=== PATIENT | female | born 1965 | race Caucasian/White ===

== ENCOUNTER 2016-08-01 05:27 | Inpatient (IN) | payer BC ==
[2016-07-30 16:39] LABS: BASOPHILS 0.1 % (0.0-2.0); EOSINOPHILS 1.8 % (0-7); HEMATOCRIT 34.7 % (36.0-48.0); HEMOGLOBIN 10.8 g/dL (12-16); IMMATURE GRANULOCYTES 0.1 % (0-5); LYMPHOCYTES 24.5 % (15-50); MCH 28.8 pg (26.0-34.0); MCHC 31.1 g/dL (31.0-37.0); MCV 92.5 fL (80.0-100.0); MEAN PLATELET VOLUME 9.4 fL (7.4-10.4); MONOCYTES 9.2 % (2-11); NEUTROPHILS 64.3 % (40-80); PLATELET COUNT 371 10x3/uL (130-400); RBC 3.75 10x6/uL (4.00-5.40); RDW 13.1 % (11.5-14.5); WBC 7.6 10x3/uL (4.8-10.8)
[~2016-08-01] VITALS: Ht 165.1 cm; Wt 92.7 kg
[2016-08-01] VITALS (14 sets, daily range): BP systolic 118–157; BP diastolic 68–99; Ht 165.1 cm; Wt 92.7 kg
[~2016-08-01 05:27] MED LIST: CYMBALTA60 MG PO; HYDROCODONE-APA1 TAB PO; NAPROSYN500 MG PO; OMEPRAZOLE20 M1 PO
[2016-08-01] MEDS ORDERED: ATIVAN0.5 MG PO (05:59)
[2016-08-01 06:00] LABS: HCG URINE NEGATIVE (NEGATIVE)
--- NOTE | 2016-08-01 10:40 | NUR ---
PT WAS RECEIVED FROM RECOVERY ROOM STATUS POST TOTAL ABDOMINAL HYST. SHE IS DROWSY BUT EASILY AWAKENS. SHE WAS TRANSFERRED FROM STRETCHER TO BED. SHE REQUEST ICE CHIPS. GIVEN. GEN- DROWSY BUT AWAKENS EASILY. LUNGS- CLEAR. HEART- RRR. ABD- SOFT WITH TENDERNESS. BIKINI LINE INCISION WITH PRIMAPORE DRESSING. EXT- SCD'S INTACT AND INITIATED. IV R HAND INTACT WITH LR INFUSING AT 125 CC/HR. SALINE LOCK NOTED LEFT HAND WHICH IS PATENT. CHUNG CATH INTACT WITH LIGHT GREEN URINE. SHE ALREADY HAS 700 CC OUTPUT POST OP. BED IS LOW, CALL LIGHT IN REACH AND SIDE RAILS ARE UP X 2.
--- NOTE | 2016-08-01 11:50 | NUR ---
PT'S IS AT BEDSIDE. SHE STILL STATES PAIN IS A 10.
--- NOTE | 2016-08-01 12:19 | NUR ---
PT IS RESTING IN BED. BED IS LOW, SIDE RAILS UP X 2. CALL LIGHT IN REACH. PTS PAIN IS ABOUT AN 8 NOW. ICE PACK IS ON INCISION. SCD'S INTACT. IV PATENT R HAND WITH LR INFUSING AT 125 CC/HR. SALINE LOCK PATENT LEFT HAND. IS AT BEDSIDE.
--- NOTE | 2016-08-01 13:10 | NUR ---
PT IS RESTING WITH EYES CLOSED. AT BEDSIDE.
[2016-08-01 13:31] LABS: BASOPHILS 0.1 % (0.0-2.0); EOSINOPHILS 0 % (0-7); HEMOGLOBIN 10.8 g/dL (12-16); IMMATURE GRANULOCYTES 0.3 % (0-5); MCH 29.1 pg (26.0-34.0); MCHC 31.8 g/dL (31.0-37.0); MCV 91.6 fL (80.0-100.0); MEAN PLATELET VOLUME 10.3 fL (7.4-10.4); MONOCYTES 2.8 % (2-11); NEUTROPHILS 94.8 % (40-80); PLATELET COUNT 373 10x3/uL (130-400); RBC 3.71 10x6/uL (4.00-5.40); RDW 13.3 % (11.5-14.5)
[2016-08-01 13:49] LABS: CALC OSMOLALITY 273 mosm/kg (275-300); CALCIUM 8.8 mg/dL (8.5-10.1); CARBON DIOXIDE 27.5 mmol/L (21.0-32.0); CHLORIDE - SERUM 100 mmol/L (98-107); CREATININE - SERUM 0.5 mg/dL (0.6-1.3); GLUCOSE 128 mg/dL (74-106); POTASSIUM - SERUM 3.9 mmol/L (3.5-5.1); SODIUM 136 mmol/L (136-145); UREA NITROGEN 13 mg/dL (7-18); eGFR NON AFRICAN AMERICAN > 90 mL/min (90-120)
[2016-08-01 13:55] LABS: WBC 19.5 10x3/uL (4.8-10.8)
--- NOTE | 2016-08-01 14:00 | NUR ---
PT CONTINUES TO COMPLAIN OF PAIN. DILAUDID 0.4 MG BOLUS GIVEN.
--- NOTE | 2016-08-01 14:00 | NUR ---
PTS WBC WAS 19.[address] GARCIA. HE STATES THIS IS NOT UNUSAL. WE WILL SEE WHAT IT IS TOMM AM.
--- NOTE | 2016-08-01 15:48 | NUR ---
PT IS SITTING UP IN BED. SHE FEELS MUCH BETTER. HER PAIN IS BETTER SHE STATES. INCISION WITH PRIMAPORE DRESSING. CLEAN , DRY AND INTACT. NO VAGINAL BLEEDING NOTED. IV SALINE LOCK CAME OUT. CLEANED HER HAND AND APPLIED BANDAID. TIP WAS INTACT. IV PATENT R HAND. CHUNG INTACT. 100CC LIGHT GREEN URINE. 450 TOTAL SINCE I'VE RECEIVED HER. SCD'S INTACT. FRESH ICE WATER GIVEN. BED IS LOW, SIDE RAILS UP X 2 AND CALL LIGHT IN REACH. HER IS AT BEDSIDE.
--- NOTE | 2016-08-01 16:29 | NUR ---
PT IS SLEEPING. LEFT TO GO HOME FOR A WHILE. BED IS LOW. CALLL LIGHT IN REACH AND SIDE RAILS UP X 2.
--- NOTE | 2016-08-01 17:21 | NUR ---
PT IS RESTING WELL. SHE OFFERS NO COMPLAINTS. CHUNG WITH 650 CC LIGHT GREEN URINE. IV INTACT R HAND WIT LR AT 125 VV/HR. DILAUDID RECEIVING SPECIALIST INTACT. CHUNG INTACT. SCD'S ON. NO VAGINAL BLEEDING NOTED. BED IS LOW , CALL LIGHT IN REACH AND SIDE RAILS UP X 2.
--- NOTE | 2016-08-01 17:55 | NUR ---
PT IS SITTING UP IN BED EATING DINNER. SHE OFFERS NO COMPLAINTS. IV INTACT R HAND WITH LR INFUSING AT 125 CC HR. DILAUDID [employer] 0.2 MG Q 10 MIN WITH A 4 MG LOCKOUT. SCD'S INTACT. CHUNG INTACT WITH LIGHT GREEN URINE NOTED. BED IS LOW, CALL LIGHT IS IN REACH AND SIDE RAILS UP X 2.
--- NOTE | 2016-08-01 20:20 | NUR ---
REC'D PT IN BED. PT C/O PAIN AT 1010 TO ABDOMEN. IV OF LR INFUSING AT 125CC/HR WITH VOCAL PERFORMER DILAUDID AVAILABLE FOR PAIN CONTROL. PT STATES IT IS NOT HELPING. INFORMED SHE HAS TORADOL ORDERED AND EXPLAINED WHAT IT IS FOR. PT AGREED TO TRY IT AND SEE IF IT WILL HELP. LUNGS CLEAR BILATERALLY. ABDOMEN SOFT NONDISTENDED. BOWEL SOUNDS PRESENT X4. LARGE DRESSING TO LOWER ABDOMEN C/D/I. CHUNG CATH IN PLACE DRAINING METHYLENE BLUE COLORED URINE. SCDS IN PLACE AND PUMP FUNCTIONING. ASSISTED PT TO TURN, COUGH AND DEEP BREATH. PILLOW TO BACK, AND BETWEEN KNEES. FRESH ICE CAP TO ABDOMEN AND ICE WATER PROVIDED PER PT REQUEST. KANDY ROBERTS
--- NOTE | 2016-08-01 20:28 | NUR ---
TORADOL 30MG SIVP ADMINISTERED AT THIS TIME. SEE E-MAR FOR DOCUMENTATION. KANDY ROBERTS
--- NOTE | 2016-08-01 21:34 | NUR ---
PAIN REASSESSMENT NOW 09/16. PT REPOSITIONED TO LEFT SIDE. PILLOWS TO BACK AND BETWEEN KNEES FOR COMFORT. KANDY ROBERTS
--- NOTE | 2016-08-01 22:41 | NUR ---
PT PHYSICIAN CHIEF OF PATHOLOGY LIGHT. REQUESTS ICE WATER AT THIS TIME. DENIES OTHER NEEDS. BED LOW. PHONE AND CALL LIGHT IN REACH. SRX2.
--- NOTE | 2016-08-01 22:45 | NUR ---
VS TAKEN AND WNL. PT RATES PAIN 3/10. FRESH ICE CAP FOR ABDOMEN AND ICE WATER IN CUP. PT TURNS SELF IN BED. SITTING UP HIGH FOWLERS. JELLO PROVIDED PER PT REQUEST. KANDY ROBERTS
--- NOTE | 2016-08-02 00:15 | NUR ---
PT RESTING WITH EYES CLOSED. RESP EVEN AND UNLABORED. KANDY ROBERTS
--- NOTE | 2016-08-02 01:45 | NUR ---
ROUNDS MADE, PT RESTING WITH EYES CLOSED. AWAKENS EASILY WITH VERBAL STIMULI. PT PUSHED HER LIME MIXER TENDER BUTTON. INFORMED TORADOL IS DUE AT 0230. ACKNOWLEDGED UNDERSTANDING. NO NEEDS AT THIS TIME. KANDY ROBERTS
--- NOTE | 2016-08-02 02:25 | NUR ---
TORADOL 30MG ADMINISTERED SIVP. PT C/O PAIN 09/16 TO ABDOMEN. GOWN CHANGED. IV SITE CLEAR. FRESH ICE WATER, JELLO AND PEANUT BUTTER AND CRACKERS PROVIDED PER PT REQUEST. KANDY ROBERTS
[2016-08-02 03:47] VITALS: BP 142/71
--- NOTE | 2016-08-02 03:47 | NUR ---
PT RESTING QUIETLY AT THIS TIME. AROUSED EASILY. VSS. EMPTIED 1800 CC FROM CHUNG. REQUESTS ICE WATER. RATES PAIN /. DENIES OTHER NEEDS AT THIS TIME. BED LOW. PHONE AND CALL LIGHT IN REACH. SRX2.
--- NOTE | 2016-08-02 05:45 | NUR ---
PT AWAKE AND ALERT ON PHONE. DENIES NEEDS. KANDY ROBERTS
[2016-08-02 07:00] VITALS: BP 140/75
[2016-08-02 07:00] LABS: BASOPHILS 0 % (0.0-2.0); EOSINOPHILS 0.2 % (0-7); HEMATOCRIT 30.3 % (36.0-48.0); HEMOGLOBIN 9.5 g/dL (12-16); IMMATURE GRANULOCYTES 0.1 % (0-5); LYMPHOCYTES 16.8 % (15-50); MCH 28.5 pg (26.0-34.0); MCHC 31.4 g/dL (31.0-37.0); MEAN PLATELET VOLUME 9.3 fL (7.4-10.4); MONOCYTES 7.4 % (2-11); NEUTROPHILS 75.5 % (40-80); RBC 3.33 10x6/uL (4.00-5.40)
--- NOTE | 2016-08-02 07:00 | NUR ---
AM ASSESSMENT DONE AT THIS TIME. NO SIGNS OF DISTRESS NOTED.
[2016-08-02 07:10] LABS: PLATELET COUNT 295 10x3/uL (130-400); WBC 9.5 10x3/uL (4.8-10.8)
[2016-08-02 07:14] LABS: CALCIUM 8.2 mg/dL (8.5-10.1); CARBON DIOXIDE 28.8 mmol/L (21.0-32.0); CHLORIDE - SERUM 98 mmol/L (98-107); CREATININE - SERUM 0.6 mg/dL (0.6-1.3); GLUCOSE 92 mg/dL (74-106); SODIUM 133 mmol/L (136-145); eGFR NON AFRICAN AMERICAN > 90 mL/min (90-120)
[2016-08-02 07:16] LABS: CALC OSMOLALITY 262 mosm/kg (275-300); POTASSIUM - SERUM 3.3 mmol/L (3.5-5.1); UREA NITROGEN 4 mg/dL (7-18)
--- NOTE | 2016-08-02 08:25 | NUR ---
PATIENT STATES PAIN LEVEL 9 OUT OF 10. PRN MEDICATION GIVEN AT THIS TIME.
--- NOTE | 2016-08-02 08:55 | NUR ---
PATIENT STATES PAIN RELIEF 6 OUT OF 10
--- NOTE | 2016-08-02 10:00 | NUR ---
PATIENT RESTING QUIETLY. NO SIGNS OF DISTRESS NOTED.
--- NOTE | 2016-08-02 11:30 | NUR ---
PATIENT REQUESTING GURVINDER. GURVINDER GIVEN TO PATIENT.
--- NOTE | 2016-08-02 12:09 | NUR ---
Pt awake and alert and setting in bed and eating salad at this time. SL to right hand, Schafer draining clear ela urine to bedside gravity without difficulty. SCD on at this time and working.
--- NOTE | 2016-08-02 12:33 | NUR ---
Schafer D/cd after bulb deflated. Pt tolerated well "that was not bad". Obtained 675 ml of clear ela urine. Instructed pt to call when needing to get up and void. Pt verblized her understanding.
--- NOTE | 2016-08-02 12:46 | NUR ---
PATIENT STATES PAIN LEVEL 8 OUT OF 10. PRN MEDICATION GIVEN AT THIS TIME.
--- NOTE | 2016-08-02 13:15 | NUR ---
PATIENT STATES PAIN RELIEF 3 OUT OF 10.
--- NOTE | 2016-08-02 13:54 | NUR ---
Pt up with assistance and ambulated to rest room - tolerated well. Voided 525 ml yellow urine. Note scant amount of vaginal bleeding. Pad changed on bed. Pannies and citlaly pad on with citlaly pad on incision as well. Assisted patient back to bed without difficulty. Denies needs at this time.
--- NOTE | 2016-08-02 15:00 | NUR ---
PATIENT RESTING QUIETLY AT THIS TIME.
--- NOTE | 2016-08-02 16:00 | NUR ---
PATIENT AMBULATED TO BATHROOM WITH ASSIST. PATIENT VOIDED 600CC'S OF CLEAR URINE WITH SMALL AMOUNT OF BLOOD NOTED. PATIENT TOLERATED AMBULATING WELL. PATIENT BACK TO BED. SCD'S APPLIED.
--- NOTE | 2016-08-02 17:54 | NUR ---
PT SITTING IN BED VISITING WITH BROTHER. LAUGHING AND SMILING. STATES PAIN A LEVEL 6 ON NUMERIC SCALE. ADMINISTERED PAIN MEDICATION REQUESTED AND ORDERED. WILL REASSESS.
[2016-08-02 19:35] VITALS: BP 131/91
--- NOTE | 2016-08-02 19:35 | NUR ---
PT RECEIVED SITTING UP IN BED COLORING IN A COLORING BOOK. VSS. S/L NOTED TO RIGHT HAND. PT RATES PAIN 4/10. HEART RRR. LUNG SOUNDS CLEAR BILATERALLY. BOWEL SOUNDS ACTIVE X4 QUADRENTS. SCDS NOTED TO BLE. ABDOMEN SOFT WITH TENDERNESS. LOW TRANSVERSE INCISION NOTED TO ABDOMEN WITH KYARA. NO REDNESS, SWELLING, OR PURULENT DRAINAGE NOTED. LIGHT LOCHIA RUBRA NOTED TO NICHOLAS PAD. PT REQUESTS ICE WATER AT THIS TIME. DENIES OTHER NEEDS. BED LOW. PHONE AND CALL LIGHT IN REACH. SRX2.
[2016-08-02 19:45] LABS: CALCIUM 8.6 mg/dL (8.5-10.1); CARBON DIOXIDE 31.2 mmol/L (21.0-32.0); CHLORIDE - SERUM 104 mmol/L (98-107); CREATININE - SERUM 0.7 mg/dL (0.6-1.3); GLUCOSE 111 mg/dL (74-106); SODIUM 143 mmol/L (136-145); eGFR NON AFRICAN AMERICAN > 90 mL/min (90-120)
[2016-08-02 19:46] LABS: CALC OSMOLALITY 283 mosm/kg (275-300); POTASSIUM - SERUM 3.9 mmol/L (3.5-5.1); UREA NITROGEN 8 mg/dL (7-18)
--- NOTE | 2016-08-02 20:43 | NUR ---
PT SITTING UP IN BED. REQUESTS ICE WATER AND FOR AIR TO BE TURNED DOWN AT THIS TIME. DENIES OTHER NEEDS. BED LOW. PHONE AND CALL LIGHT IN REACH. SRX2.
--- NOTE | 2016-08-02 21:17 | NUR ---
PT REQUESTS LIGHT BE TURNED OFF AT THIS TIME. DENIES OTHER NEEDS. BED LOW. PHONE AND CALL LIGHT IN REACH. SRX2.
--- NOTE | 2016-08-02 22:10 | NUR ---
PT RESTING QUIETLY AT THIS TIME ON RIGHT SIDE. AROUSED EASILY. DENIES NEEDS AT THIS TIME. BED LOW. PHONE AND CALL LIGHT IN REACH. SRX2.
--- NOTE | 2016-08-02 22:17 | NUR ---
PT REQUESTS MEDICATION FOR PAIN 08/16 AT THIS TIME. ADMINISTERED NORCO PO PER ORDERS. DENIES OTHER NEEDS.
[2016-08-03] VITALS: BP 145/88
--- NOTE | 2016-08-03 | NUR ---
PT RESTING QUIETLY AT THIS TIME. AROUSED EASILY. BP-145/88 P-78. O2-96% ON ROOM AIR. PT RATES PAIN 2/10. SCANT BLEEDING NOTED TO NICHOLAS PAD. PT DENIES NEEDS AT THIS TIME. BED LOW. PHONE AND CALL LIGHT IN REACH. SRX2.
--- NOTE | 2016-08-03 02:05 | NUR ---
PT RESTING QUIETLY AT THIS TIME WITH EYES CLOSED. RESPIRATIONS EVEN, NON-LABORED. NO ACUTE DISTRESS NOTED AT THIS TIME. BED LOW. PHONE AND CALL LIGHT IN REACH. SRX2.
[2016-08-03 04:25] VITALS: BP 132/85
--- NOTE | 2016-08-03 04:25 | NUR ---
PT LYING IN BED ON LEFT SIDE RESTING QUIETLY AT THIS TIME. RATES PAIN 2/10. VSS. SCANT AMOUNT OF BLOOD NOTED TO NICHOLAS PAD. PT DENIES NEEDS AT THIS TIME. BED LOW. PHONE AND CALL LIGHT IN REACH. SRX2.
--- NOTE | 2016-08-03 05:58 | NUR ---
PT CHARTING CLERK LIGHT. REQUESTS MEDICATION FOR PAIN 01/16 AT THIS TIME. DENIES OTHER NEEDS. BED LOW. PHONE AND CALL LIGHT IN REACH. SRX2.
[2016-08-03 06:59] LABS: BASOPHILS 0.4 % (0.0-2.0); HEMATOCRIT 33.2 % (36.0-48.0); IMMATURE GRANULOCYTES 0.2 % (0-5); LYMPHOCYTES 26.2 % (15-50); MCH 28.4 pg (26.0-34.0); MCHC 30.1 g/dL (31.0-37.0); MEAN PLATELET VOLUME 9.9 fL (7.4-10.4); MONOCYTES 8.6 % (2-11); NEUTROPHILS 62.6 % (40-80); PLATELET COUNT 330 10x3/uL (130-400); RBC 3.52 10x6/uL (4.00-5.40); RDW 13.4 % (11.5-14.5); WBC 8.1 10x3/uL (4.8-10.8)
[2016-08-03 07:01] LABS: MCV 94.3 fL (80.0-100.0)
[2016-08-03 07:06] LABS: CALC OSMOLALITY 280 mosm/kg (275-300); CALCIUM 8.6 mg/dL (8.5-10.1); CARBON DIOXIDE 31.3 mmol/L (21.0-32.0); CHLORIDE - SERUM 104 mmol/L (98-107); CREATININE - SERUM 0.6 mg/dL (0.6-1.3); GLUCOSE 99 mg/dL (74-106); POTASSIUM - SERUM 3.8 mmol/L (3.5-5.1); SODIUM 142 mmol/L (136-145); UREA NITROGEN 7 mg/dL (7-18); eGFR NON AFRICAN AMERICAN > 90 mL/min (90-120)
[2016-08-03 07:10] VITALS: BP 140/76
--- NOTE | 2016-08-03 07:20 | NUR ---
PT AWAKE, ALERT, ORIENTED, SITTING UP IN BED COLORING. LOW TRANSVERSE ABD INC C/D/I WITH KYARA, COVERED WITH NICHOLAS PAD FOR COMFORT. SCANT BLEEDING. LARGE GLASS ICE WATER PROVIDED. ANTICIPATES D/C TODAY.
--- NOTE | 2016-08-03 08:30 | NUR ---
AM MEDS GIVEN. VISITOR AT BEDSIDE.
--- NOTE | 2016-08-03 09:18 | NUR ---
RESTING IN BED ON RIGHT SIDE. VISITOR AT BEDSIDE.
--- NOTE | 2016-08-03 10:36 | NUR ---
RX GIVEN FOR INCISIONAL PAIN. SEE EMAR.
[2016-08-03] MEDS ORDERED: IBUPROFEN600 MG PO (11:06)
--- NOTE | 2016-08-03 11:26 | NUR ---
DR. BOLANOS HERE FOR ROUNDS.
--- NOTE | 2016-08-03 12:15 | NUR ---
D/C INSTRUCTIONS EXPLAINED TO PT. VOICED UNDERSTANDING. COPIES OF ALL GIVEN, WELL WRITTEN RX'S FOR NORCO [address] BOLANOS. SL D/C'D CATH INTACT FROM RIGHT HAND. ESTRADIOL PATCH EXPLAINED AND PLACED ON PT.
--- NOTE | 2016-08-03 12:30 | NUR ---
D/C'D HOME VIA W/C TO PRIVATE CAR.
--- NOTE | 2016-08-06 11:44 | OP ---
PATIENT NAME: TALHA GUNN MEDICAL RECORD: [id number] :69 LOCATION:[id number] ADMISSION DATE:08/01/16 SURGEON: JOHN MORALES MD DATE OF OPERATION: 08/01/2016 PREOPERATIVE DIAGNOSES: 1. Menorrhagia. 2. Pelvic pain. 3. Uterine fibroids. POSTOPERATIVE DIAGNOSES: 1. Menorrhagia. 2. Pelvic pain. 3. Uterine fibroids. 4. Likely adenomyosis. PROCEDURES: Total abdominal hysterectomy, bilateral salpingo-oophorectomy. SURGEON: John Morales MD. ANESTHESIA: General endotracheal. INTRAVENOUS FLUIDS: Per anesthesia record. ESTIMATED BLOOD LOSS: 200 cc. FINDINGS: 1. Enlarged fibroid uterus with soft in texture consistent with adenomyosis. 2. Grossly normal tubes and ovaries bilaterally. SPECIMENS: Uterus with cervix, bilateral fallopian tubes and ovaries. COMPLICATIONS: None apparent. PROCEDURE IN DETAIL: The patient was taken to the operating room where general anesthesia was achieved without difficulty. The patient was then prepped and draped in normal sterile fashion in the dorsal supine position. SCDs were on and functioning normally. A Schafer catheter had been placed and was found to be draining normally. At this point, a Pfannenstiel skin incision was made, extended downwards to the underlying subcutaneous fat to level of the fascia, which was then excised in the midline and dissected bilaterally using the Manuel scissors. Superior and inferior aspects of the fascial incision were then grasped with Josy clamps times 2, tented upward, and sharply dissected from the underlying rectus muscle. The rectus muscles were then bluntly in the midline. The peritoneum was entered superiorly using a finger. The peritoneal incision was extended bilaterally using the Metzenbaum scissors. At this point, a Jonnie was placed over the bladder. Uterus was then delivered through the incision. A moist lap sponge was used to retract the bowel and a malleable retractor was placed in the posterior cul-de-sac. At this point, attention was turned to the bilateral round ligaments, which were grasped times 2 with Josy clamps, cut and suture ligated with 0 Vicryl. A bladder flap was created by excising the anterior leaf of the broad ligament across the lower uterine segment was easily dissected downward off of the cervix. Defects were then made in the bilateral posterior leaf of the broad ligament and curved Laurel clamps were placed across the proximal fallopian tube and utero-ovarian OPERATIVE REPORT [id number] TALHA GUNN ligaments times 2. These were then cut with the Manuel scissors, free tied with 0 Vicryl and then suture ligated with 0 Vicryl with good hemostasis noted. The uterine vessels were then skeletonized bilaterally using the Metzenbaum scissors. The uterine arteries were then clamped with curved Laurel clamps, cut and then suture ligated using 0 Vicryl. The cardinal ligaments were then clamped with straight Laurel clamps in 2 successive bites bilaterally. These were then cut and suture ligated using 0 Vicryl at the level of the vagina. Straight Laurel clamps were placed and the Cherelle scissors were used to excise the uterus just below the level of the cervix. The vaginal cuff was then grasped with Josy clamps and repaired with 0 Vicryl in an interrupted [id number] fashion with good hemostasis noted. Several areas of the posterior peritoneum were oversewn using 2-0 Vicryl. Attention was then turned to the bilateral adnexa. The infundibulopelvic ligaments were skeletonized and the ovaries and tubes were then clamped immediately proximal to their attachment to the infundibulopelvic ligaments bilaterally. These were free tied with 0 Vicryl, flushed and then suture ligated medially using 0 Vicryl. Good hemostasis was noted from both sites. Several areas of the bladder flap dissection were very superficially cauterized and FloSeal was placed on the surgical sites. The lap was removed. Counts were correct times 2. The fascia was then repaired with 0 loop PDS times 1 in a running fashion and the skin repaired with joceline. The patient tolerated the procedure well, transferred to post-anesthesia recovery stable without incident. TRANSINT:[id number] Voice Confirmation ID: [id number] DOCUMENT ID: [id number] JOHN MORALES MD at 1142 CC: [id number] DICTATION DATE: 08/02/16 0658 FRUIT COORDINATOR: 08/02/16 0819 ADM IN [place] [id number] [place] [address]
== END 2016-08-03 12:37 | disposition home or self-care (01) | DRG 742 ==
LOC: D.WS 05:27 → D.SDCHOLD 05:27 → D.WS 08:58
PROVIDERS: Anesthesiology; Specialist; ADMIT Obstetrics & Gynecology
PROC: 0UTC0ZZ Resection of Cervix, Open Approach (ICD-10-PCS; 2016-08-01)
PROC: 0UT70ZZ Resection of Bilateral Fallopian Tubes, Open Approach (ICD-10-PCS; 2016-08-01)
PROC: 0UT20ZZ Resection of Bilateral Ovaries, Open Approach (ICD-10-PCS; 2016-08-01)
PROC: 0UT90ZZ Resection of Uterus, Open Approach (ICD-10-PCS; principal; 2016-08-01 07:30)
DX: N92.0 Excessive and frequent menstruation with regular cycle (principal); E22.1 Hyperprolactinemia; D25.9 Leiomyoma of uterus, unspecified

== ENCOUNTER → 2017-12-31 17:16 | Outpatient (CLI) | payer BC ==
[2016-08-01 12:49] VITALS: BMI 34.0
[~2017-12-31 17:16] MED LIST changes: +ATIVAN0.5 MG PO; +IBUPROFEN600 MG PO
== END | disposition home or self-care (01) ==
LOC: D.MRI 17:16
DX: M54.5 Low back pain (principal)

== ENCOUNTER → 2018-01-21 14:42 | Outpatient (CLI) | payer BC ==
[2016-08-01 12:49] VITALS: BMI 34.0
== END | disposition home or self-care (01) ==
LOC: D.MRI 14:42
DX: M54.2 Cervicalgia (principal)

== ENCOUNTER 2020-01-19 14:00 | Outpatient (CLI) | payer BC ==
[2016-08-01 12:49] VITALS: BMI 34.0
== END 2020-01-19 23:59 | disposition home or self-care (01) ==
LOC: D.MAMMO 14:00
PROVIDERS: ATTEND Family Medicine
DX: Z12.31 Encounter for screening mammogram for malignant neoplasm of breast (principal)